=== PATIENT | male | born 1980 | race Caucasian/White ===

== ENCOUNTER 2022-04-20 06:38 | Inpatient (IN) | payer OTHER ==
[~2022-04-20] VITALS: Ht 188 cm; Wt 90.7 kg
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
--- NOTE | 2022-04-20 07:15 | NUR ---
REceived pt FROM [facility]IE PT AWAKE [facility] COMMAND WAITING FOR X RAYS
--- NOTE | 2022-04-20 07:50 | NUR ---
X-RAY DONE AT BED SIDE
--- NOTE | 2022-04-20 08:50 | NUR ---
MOVE SHEET SUBMITTED.
--- NOTE | 2022-04-20 09:06 | NUR ---
[employer] AT BED SIDE SPOOK WITH PT OFFICER (DUNIA # [id number] ) AND OFFICER NATALEE #[id number] # [id number]
--- NOTE | 2022-04-20 09:17 | NUR ---
[facility] CM [phone] X [phone]
--- NOTE | 2022-04-20 09:22 | NUR ---
DR. TAY FROM [facility] SPEAKING WITH DR. HARDING.
--- NOTE | 2022-04-20 09:30 | NUR ---
[facility] CALLED [facility].
[2022-04-20] MEDS ORDERED: LORAZEPAM INJ 2 MG/ML VIAL ONE (09:52)
[2022-04-20] MEDS ORDERED: MAG HYDROX/AL HYDROX/SIMETH 30 ML UDC PO PRN (10:00)
[2022-04-20] MEDS ORDERED: Z GUARD REMEDY 4 OZ OINT TP PRN (10:00)
[2022-04-20] MEDS ORDERED: ONDANSETRON HCL/PF 4 MG/2 ML VIAL IVP PRN (10:00)
[2022-04-20] MEDS ORDERED: LORAZEPAM INJ 2 MG/ML VIAL IM ONE (10:00)
[2022-04-20] MEDS ORDERED: MAGNESIUM HYDROXIDE 30 ML UDC PO PRN (10:00)
[2022-04-20] MEDS ORDERED: ZOLPIDEM TARTRATE 5 MG TABLET PO PRN (10:00)
[2022-04-20] MEDS ORDERED: ACETAMINOPHEN 325 MG TABLET PO PRN (10:00)
[2022-04-20] MEDS ORDERED: MORPHINE SULFATE INJ 2 MG/ML DISP.SYRIN IV ONE (10:30)
[2022-04-20] MEDS ORDERED: MORPHINE SULFATE INJ 2 MG/ML DISP.SYRIN ONE (10:47)
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
--- NOTE | 2022-04-20 11:30 | NUR ---
PNEUMOTHARAX 5-10% CERTIFIED TOWER CLIMBER NEED CHEST TUBE BY DR. HARDING
--- NOTE | 2022-04-20 11:59 | NUR ---
CALLED ORTHO DR. WHARTON LEFT VM
--- NOTE | 2022-04-20 12:32 | NUR ---
RESTING AND ASLEEPY NO SOB OR DISTRESS HOB 45 ALL TIME
--- NOTE | 2022-04-20 14:19 | NUR ---
bed assigned 315.1 admitting aware.
--- NOTE | 2022-04-20 15:00 | NUR ---
NO SOB OR DISTRESS
--- NOTE | 2022-04-20 15:27 | NUR ---
HAND OFF TO Miguel CLEMENTS RN
--- NOTE | 2022-04-20 15:27 | NUR ---
TO ROOM 315-1
--- NOTE | 2022-04-20 15:40 | NUR ---
OIL EXPERT ADMITTING NOTES ADMITTED A 42 YO MALE TO UNIT AT 1534 VIA GURNEY WITH DX OF PNEUMOTHORAX. PT IS AOX4 AND ABLE TO MAKE NEEDS KNOWN. ORIENTED TO ROOM AND STAFF. VS TAKEN , STABLE AND RECORDED, PT ON 6 LPM VIA NC PER MD RECOMMENDATION. PATIENT IS SATURATING AT 97% SPO2 WITH NO ACUTE RESPIRATORY DISTRESS NOTED. WITH LEFT WRIST G#18, SALINE LOCKED, PATENT AND FLUSHING WELL. TELEMONITORING SHOWS SINUS RHYTHM AT 94 BPM. LUNGS CLEAR ON AUSCULTATION, ABDOMEN SOFT AND NON TENDER AND NON-DISTENDED WITH POSITIVE BOWEL SOUNDS ON 4 QUADRANTS. PHOTOS OF SKIN ISSUES TAKEN AND FILED ON HIS CHART. SAFETY MEASURES IMPLEMENTED: BED PLACED IN LOWEST AND LOCKED POSITION WITH SR UP X2. TRAY TABLE AND CALL LIGHT WITHIN EASY REACH OF PATIENT. WILL CONTINUE TO MONITOR PATIENT.
[2022-04-20 15:45] VITALS: BP 134/84
--- NOTE | 2022-04-20 17:35 | NUR ---
RN NOTES - PAIN MGT PATIENT REQUESTING FOR PAIN MEDICATION FOR RIGHT ARM PAIN 8-01/01, LOLITA CHO ORDERED NORCO 5/325 MG Q4 PRN, GIVEN TO THE PATIENT. WILL CONTINUE TO MONITOR.
[2022-04-20] MEDS: HYDROCODONE/APAP 5/325MG TABLET PO PRN (17:41)
[2022-04-20] MEDS ORDERED: ACETAMINOPHEN ES 500 MG TABLET ONE (18:23)
[2022-04-20 20:00] VITALS: BP 116/76
--- NOTE | 2022-04-20 20:00 | NUR ---
DIRECTOR PHARMACY SERVICES CLOSING NOTES PATIENT LYING IN BED, RESTING, EASILY AROUSABLE, NOT IN ANY SIGNS AND SYMPTOMS OF ANY DISTRESS. ENDORSED TO ORDER SCHEDULE CLERK NURSE FOR CONTINUITY OF CARE.
--- NOTE | 2022-04-20 20:09 | NUR ---
DIP STAND LOADER OPENING NOTE PATIENT SLEEPING IN BED, EASILY AWAKENED, PT ALERT/ORIENTED X 4, PT ABLE TO MAKE NEEDS KNOWN. PT STABLE ON 6 LPM OF O2 VIA NASAL CANNULA, NO S/S OF DISTRESS OR SOB NOTED, BREATHING EVEN AND UNLABORED. RIGHT ARM IN SPLINT. SAFETY MEASURES IN PLACE: CALL LIGHT WITHIN REACH, SIDE RAILS UP X 2, BED LOCKED IN LOWEST POSITION, BED ALARM ON. WILL CONTINUE TO MONITOR PATIENT Addendum: 04/20/22 at 2013 by ASHWINI BAE RN PATIENT ON EXTERNAL BARREL SCRAPER READING SINUS RHYTHM WITH PVC'S, HR: 88
[2022-04-20] MEDS: MORPHINE SULFATE INJ 2 MG/ML DISP.SYRIN IV PRN (21:25)
[2022-04-21] VITALS: BP 119/85
[2022-04-21] MEDS: HYDROCODONE/APAP 5/325MG TABLET PO PRN ×3 (00:29→21:22)
[2022-04-21 04:00] VITALS: BP 110/82
[2022-04-21] MEDS: MORPHINE SULFATE INJ 2 MG/ML DISP.SYRIN IV PRN ×3 (04:07→18:21)
--- NOTE | 2022-04-21 06:20 | NUR ---
SUPERVISOR PAINT DEPARTMENT CLOSING NOTE PATIENT SLEEPING IN BED, EASILY AWAKENED, PT ALERT/ORIENTED X 4, PT ABLE TO MAKE NEEDS KNOWN. PT STABLE ON 6 LPM OF O2 VIA NASAL CANNULA, NO S/S OF DISTRESS OR SOB NOTED, BREATHING EVEN AND UNLABORED. PATIENT ON EXTERNAL SPOILAGE WORKER READING SINUS RHYTHM WITH PVC'S, HR: 78. RIGHT ARM IN SPLINT. NO SIGNIFICANT CHANGES THIS SHIFT, PT SLEPT WELL THROUGH THE NIGHT, MEDICATIONS GIVEN ORDERED, PT NEEDS MET THROUGHOUT SHIFT, PAIN CONTROLLED WITH MEDS. SAFETY MEASURES IN PLACE: CALL LIGHT WITHIN REACH, SIDE RAILS UP X 2, BED LOCKED IN LOWEST POSITION, BED ALARM ON. WILL ENDORSE TO DAYSHIFT RN FOR CONTINUITY OF CARE
[2022-04-21 06:59] LABS: BASOPHILS % (AUTO) 0.3 % (0.0-2.0); EOSINOPHILS % (AUTO) 2.3 % (0.0-6.0); HEMATOCRIT 40 % (39-51); HEMOGLOBIN 13.6 g/dL (13.5-17.5); LYMPHOCYTES # (AUTO) 1.3 K/uL (0.8-4.8); LYMPHOCYTES % (AUTO) 15.4 % (20.0-44.0); MEAN CORPUSCULAR HGB CONC 34 g/dl (31.0-36.0); MEAN CORPUSCULAR VOLUME 89 fL (80-96); MONOCYTES # (AUTO) 0.5 K/uL (0.1-1.30); MONOCYTES % (AUTO) 5.4 % (2.0-12.0); NEUTROPHILS # (AUTO) 6.5 K/uL (1.8-8.9); NEUTROPHILS % (AUTO) 76.6 % (43.0-81.0); PLATELET COUNT (AUTO) 313 K/uL (150-450); RED BLOOD CELL COUNT(AUTO) 4.49 MIL/uL (4.5-6.0); WHITE BLOOD COUNT (AUTO) 8.4 K/uL (4.3-11.0)
--- NOTE | 2022-04-21 07:23 | NUR ---
MANAGER SHAREPOINT OPENING NOTES RECEIVED PATIENT AWAKE IN BED IN NO ACUTE SIGNS OF DISTRESS. A/O X 4, ABLE TO MAKE NEEDS KNOWN, NO C/O PAIN AT THIS TIME. RIGHT ARM SPLINT IN PLACE. PT ON O2 VIA NASAL CANNULA @ 6LPM, TOLERATING WELL, BREATHING EVEN AND UNLABORED. TELE- MONITOR CURRENTLY SHOWS NSR WITH OCCASIONAL PVC'S AND PAC'S, HR 90, NO C/O CARDIAC DISTRESS NOTED. SAFETY MEASURES IN PLACE: CALL LIGHT WITHIN REACH, SIDE RAILS UP X 2, BED LOCKED IN LOWEST POSITION, BED ALARM ON. WILL CONTINUE TO MONITOR PATIENT ACCORDINGLY.
[2022-04-21 07:42] LABS: CALCIUM, SERUM 8.2 mg/dL (8.5-10.1); CREATININE 0.9 mg/dL (0.6-1.3); PHOSPHORUS 3.2 mg/dL (2.5-4.9); POTASSIUM 4.1 mmol/L (3.5-5.1)
[2022-04-21 08:00] VITALS: BP 135/72
[2022-04-21 12:00] VITALS: BP 128/68
[2022-04-21 16:00] VITALS: BP 121/75
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
--- NOTE | 2022-04-21 18:41 | NUR ---
AUTO DRIVER CLOSING NOTES PATIENT IN BED WATCHING TV AT THIS TIME. A/O X 4, ABLE TO MAKE NEEDS KNOWN. RIGHT ARM SPLINT IN PLACE. ON O2 VIA NASAL CANNULA @ 6LPM, TOLERATING WELL, BREATHING EVEN AND UNLABORED, NO ACUTE RESPIRATORY DISTRESS NOTED DURING SHIFT. TELE- MONITOR CURRENTLY SHOWS NSR WITH OCCASIONAL PVC'S AND PAC'S, HR 72, NO C/O CARDIAC DISTRESS VOICED. ALL NEEDS AND CARE ATTENDED WELL. SAFETY MEASURES KEPT IN PLACE: CALL LIGHT WITHIN REACH, SIDE RAILS UP X 2, BED LOCKED IN LOWEST POSITION, BED ALARM ON. WILL ENDORSE SOBIA TO NIGHTSHIFT NURSE.
--- NOTE | 2022-04-21 19:50 | NUR ---
AMUSEMENT EQUIPMENT OPERATOR OPENING NOTE RECEIVED PATIENT AWAKE IN BED. NO ACUTE SIGNS OF DISTRESS NOTED. PT A/O X 4, ABLE TO MAKE NEEDS KNOWN, NO C/O PAIN AT THIS TIME. RIGHT ARM SPLINT IN PLACE. PT ON O2 VIA NASAL CANNULA @ 6 LPM, TOLERATING WELL, BREATHING EVEN AND UNLABORED. TELE- MONITOR CURRENTLY SHOWS NSR WITH OCCASIONAL PVC'S AND PAC'S, HR 90, NO C/O CARDIAC DISTRESS. SAFETY MEASURES IN PLACE: CALL LIGHT WITHIN REACH, SIDE RAILS UP X 2, BED LOCKED IN LOWEST POSITION, BED ALARM ON. WILL CONTINUE TO MONITOR PATIENT.
[2022-04-21 21:08] VITALS: BP 117/85
[2022-04-22] VITALS: BP 125/84
[2022-04-22] MEDS: MORPHINE SULFATE INJ 2 MG/ML DISP.SYRIN IV PRN (00:16)
[2022-04-22 04:00] VITALS: BP 117/77
--- NOTE | 2022-04-22 07:03 | NUR ---
VP OF TECHNOLOGY CLOSING NOTE PATIENT SLEEPING IN BED, EASILY AWAKENED, PT ALERT/ORIENTED X 4, PT ABLE TO MAKE NEEDS KNOWN. PT STABLE ON 6 LPM OF O2 VIA NASAL CANNULA, NO S/S OF DISTRESS OR SOB NOTED, BREATHING EVEN AND UNLABORED. PATIENT ON TELE MONITOR READING SINUS RHYTHM WITH PVC'S. RIGHT ARM IN SPLINT. MEDICATIONS GIVEN ORDERED, PAIN CONTROLLED WITH MEDS. SAFETY MEASURES IN PLACE: CALL LIGHT WITHIN REACH, SIDE RAILS UP X 2, BED LOCKED IN LOWEST POSITION, BED ALARM ON. WILL ENDORSE TO DAYSHIFT RN FOR CONTINUITY OF CARE
--- NOTE | 2022-04-22 07:16 | NUR ---
CLINICAL INFORMATICS STRATEGIST OPENING NOTE RECEIVED PATIENT AWAKE IN BED. NO ACUTE SIGNS OF DISTRESS NOTED. PT A/O X 4, ABLE TO MAKE NEEDS KNOWN. RIGHT ARM SPLINT IN PLACE. PT ON O2 VIA NASAL CANNULA @ 6 LPM, TOLERATING WELL, BREATHING EVEN AND UNLABORED. TELE- MONITOR CURRENTLY SHOWS NSR WITH OCCASIONAL PVC'S AND PAC'S, HR 77, NO C/O CARDIAC DISTRESS. SAFETY MEASURES IN PLACE: CALL LIGHT WITHIN REACH, SIDE RAILS UP X 2, BED LOCKED IN LOWEST POSITION, BED ALARM ON. WILL CONTINUE TO MONITOR PATIENT.
[2022-04-22 07:23] LABS: CALCIUM, SERUM 8.8 mg/dL (8.5-10.1); CREATININE 0.9 mg/dL (0.6-1.3); MAGNESIUM 2.3 mg/dL (1.8-2.4); PHOSPHORUS 3.9 mg/dL (2.5-4.9); POTASSIUM 3.8 mmol/L (3.5-5.1)
[2022-04-22] MEDS: HYDROCODONE/APAP 5/325MG TABLET PO PRN ×3 (08:04→19:40)
[2022-04-22 08:36] LABS: BASOPHILS % (AUTO) 0.1 % (0.0-2.0); EOSINOPHILS % (AUTO) 2.9 % (0.0-6.0); HEMATOCRIT 41 % (39-51); HEMOGLOBIN 13.6 g/dL (13.5-17.5); LYMPHOCYTES # (AUTO) 1.4 K/uL (0.8-4.8); LYMPHOCYTES % (AUTO) 18.8 % (20.0-44.0); MEAN CORPUSCULAR HGB CONC 33 g/dl (31.0-36.0); MEAN CORPUSCULAR VOLUME 89 fL (80-96); MONOCYTES # (AUTO) 0.4 K/uL (0.1-1.30); NEUTROPHILS # (AUTO) 5.3 K/uL (1.8-8.9); NEUTROPHILS % (AUTO) 72.2 % (43.0-81.0); PLATELET COUNT (AUTO) 321 K/uL (150-450); RED BLOOD CELL COUNT(AUTO) 4.63 MIL/uL (4.5-6.0); WHITE BLOOD COUNT (AUTO) 7.3 K/uL (4.3-11.0)
--- NOTE | 2022-04-22 12:27 | NUR ---
Medical records: Per the pt.'s hydrological technical officer, Racheal Cabrera TEL:[phone] request pt. signed release of health information form and it was placed in the chart. NICOLE emailed facesheet and current medication list to [email or web address] for the purposes of avoiding warrant and being aware of medications he has taken for drug test purposes per Racheal. NICOLE will be available as needed.
--- NOTE | 2022-04-22 18:28 | NUR ---
RN CLOSING NOTE PATIENT SLEEPING IN BED, EASILY AWAKENED, PT ALERT/ORIENTED X 4, PT ABLE TO MAKE NEEDS KNOWN. PT STABLE ON ROOM AIR, WAS WEANED OFF SUPPLEMENTAL OXYGEN PER DR ORDER. NO S/S OF RESPIRATORY DISTRESS OR SOB NOTED AT THIS TIME, BREATHING EVEN AND UNLABORED. NO COMPLAINTS OF CARDIAC DISTRESS. PAIN CONTROLLED WITH MEDICATIONS. SAFETY MEASURES IN PLACE: CALL LIGHT AND TRAY WITHIN REACH, SIDE RAILS UP X 2, BED LOCKED IN LOWEST POSITION, BED ALARM ON. WILL ENDORSE TO MANAGER LEAN RN FOR CONTINUITY OF CARE
--- NOTE | 2022-04-22 19:36 | NUR ---
RN OPENING NOTE PATIENT SLEEPING IN BED, EASILY AWAKENED, PT ALERT/ORIENTED X 4, PT ABLE TO MAKE NEEDS KNOWN. PT STABLE ON ROOM AIR, WAS WEANED OFF SUPPLEMENTAL OXYGEN PER DR ORDER. NO S/S OF RESPIRATORY DISTRESS OR SOB NOTED AT THIS TIME, BREATHING EVEN AND UNLABORED. NO COMPLAINTS OF CARDIAC DISTRESS. SAFETY MEASURES IN PLACE: CALL LIGHT AND TRAY WITHIN REACH, SIDE RAILS UP X 2, BED LOCKED IN LOWEST POSITION, BED ALARM ON.
[2022-04-22 19:39] VITALS: BP 138/77
[2022-04-23] MEDS: HYDROCODONE/APAP 5/325MG TABLET PO PRN ×4 (03:32→20:56)
--- NOTE | 2022-04-23 07:48 | NUR ---
WAREHOUSE TEAM LEADER OPENING NOTE Patient in bed, awake. A/O x 4, able to make needs known. On room air, breathing evenly and unlabored. No SOB or s/s of distress noted. IV access on Left wrist #18 SL, intact and patent. On tele monitoring showing SR. Safety precautions in place: bed in low, locked position; siderails up x 2; call light within reach. Will continue to monitor.
[2022-04-23 08:00] VITALS: BP 122/87
--- NOTE | 2022-04-23 08:14 | NUR ---
RN NOTE Patient complained of pain on left arm and knees, 7/10 on pain scale. PRN [place] 5/325 given, will continue to monitor.
--- NOTE | 2022-04-23 15:53 | NUR ---
RN NOTE Patient complained of pain on left arm and knees, 7/10 on pain scale. PRN [place] 5/325 1 tablet PO given, will continue to monitor.
[2022-04-23 16:00] VITALS: BP 120/68
--- NOTE | 2022-04-23 19:45 | NUR ---
AUTO ELECTRICIAN CLOSING NOTE Patient in bed, awake. A/O x 4, able to make needs known. On room air, breathing evenly and unlabored. No SOB or s/s of distress noted. IV access on Left wrist #18 SL, patient refusing to have IV access flushed. On tele monitoring showing Sinus tachycardia, HR 108. All needs attended to. Due meds given. Safety precautions in place: bed in low, locked position; siderails up x 2; call light within reach. Will endorse to hourly shift manager nurse for SOBIA.
[2022-04-23 20:00] VITALS: BP 122/82
--- NOTE | 2022-04-23 20:28 | NUR ---
RN OPENING NOTE PATIENT AWAKE IN BED. A/OX4. NO S/S OF DISTRESS, BREATHING WITHOUT DIFFICULTY ON ROOM AIR. L-WRIST #18 INTACT AND PATENT. TELE READS SR 83. SAFETY MEASURES IN PLACE: BED LOCKED IN PLACE AND AT LOWEST POSITION, RAILS UP X2, CALL KELLY WITHIN REACH. WILL CONTINUE TO MONITOR PATIENT.
[2022-04-24] VITALS (7 sets, daily range): BP systolic 98–143; BP diastolic 56–102
--- NOTE | 2022-04-24 07:02 | NUR ---
RN CLOSING NOTE PATIENT ASLEEP IN BED. A/OX4. NO S/S OF DISTRESS, BREATHING WITHOUT DIFFICULTY ON ROOM AIR. L-WRIST #18 SL INTACT AND PATENT. TELE READS SR 74 W/ PVCs. SAFETY MEASURES IN PLACE: BED LOCKED AND AT LOWEST POSITION, RAILS UP X2, CALL KELLY WITHIN REACH. WILL ENDORSE TO NEXT SHIFT FOR SOBIA.
--- NOTE | 2022-04-24 07:05 | NUR ---
GLOBAL SALES MANAGER OPENING NOTES RECEIVED PATIENT AWAKE IN BED, ON ROOM AIR, NO S/S OF RESPIRATORY DISTRESS. PATIENT IS A/Ox4 ABLE TO MAKE NEEDS KNOWN. IV ACCESS L WRIST #18 S/L. INTACT AND PATENT. PATIENT DID SAY HE IS WAS SOME PAIN AND REQUESTED PRN NARCO. ON TELE MONITORING SHOWING SINUS RHYTHM HR 79 WITH SOME PVCs. PATIENT IS CONTINENT, AMBULATORY AND HAS BATHROOM PRIVILEGE. SKIN ISSUES: R ARM SPLINT, IN PLACE. SAFETY MEASURES: BED LOCKED AND IN LOWEST POSITION, SIDE RAILS UPx2, CALL LIGHT WITHIN REACH, HOB ELEVATED. WILL CONTINUE TO MONITOR.
[2022-04-24] MEDS: HYDROCODONE/APAP 5/325MG TABLET PO PRN ×3 (08:02→17:09)
--- NOTE | 2022-04-24 14:25 | NUR ---
RN NOTES PATIENT COMPLAINED OF PAIN 7/10 IN HIS ARM AND SIDE. PRN NARCO ADMINISTERED @1304. PT NOW SLEEPING IN BED. WILL CONTINUE TO MONITOR.
--- NOTE | 2022-04-24 18:42 | NUR ---
SAFETY OFFICER CLOSING NOTES PATIENT AWAKE IN BED, STABLE ON ROOM AIR, NO S/S OF RESPIRATORY DISTRESS. PATIENT IS A/Ox4 ABLE TO MAKE NEEDS KNOWN. IV ACCESS L FA #22 S/L. INTACT AND PATENT. ON TELE MONITORING SHOWING SINUS RHYTHM HR 76 WITH SOME PVCs. PATIENT IS CONTINENT, AMBULATORY AND HAS BATHROOM PRIVILEGE. SKIN ISSUES: R ARM SPLINT, IN PLACE. SAFETY MEASURES MAINTAINED: : BED LOCKED AND IN LOWEST POSITION, SIDE RAILS UPx2, CALL LIGHT WITHIN REACH, HOB ELEVATED. WILL ENDORSE TO NEXT SHIFT ANY SOBIA.
--- NOTE | 2022-04-24 20:33 | NUR ---
TELE PODIATRY ASSISTANT INITIAL NOTES Received pt in bed sitting while watching TV at this time, He's pleasant and approachable , no signs of any discomfort at this time. he's left arm still with splint and dressings. Vital signs stable and he's on tele SR heart rate 84. kept him comfortable at all times. will continue monitoring.
--- NOTE | 2022-04-25 | NUR ---
TELE INDUSTRIAL RELATIONS WORKER NOTES PT SLEEPING COMFORTABLY IN BED WITHOUT ANY DISCOMFORT NOTED. KEPT HIM WARM AND COMFORTABLE AT ALL TIMES. TELE SR PER MONITOR . WILL CONTINUE MONITORING.
[2022-04-25] MEDS: HYDROCODONE/APAP 5/325MG TABLET PO PRN ×5 (04:42→23:45)
--- NOTE | 2022-04-25 04:42 | NUR ---
TELE NAVAL POLICE [place]IN NOTES PT WOKE UP AND ASKING FOR HIS NORCO TABLET FOR HIS PAIN ON HIS RIGHT ARM. JUICE AND SANDWICH ALSO SERVED AND STATED "THANK YOU " . WILL CONTINUE MONITORING.
--- NOTE | 2022-04-25 06:51 | NUR ---
TELE APPLIED SCIENCE AND TECHNOLOGIES DEAN CLOSING NOTES PT AWAKE AND WATCHING TV AT THIS TIME. STABLE TROUGHOUT THE NIGHT. TELE SINUS RHYTHM HEART RATE 78. ALL NEEDS MET AND WILL CONTINUE MONITORING . ENDORSE TO AM NURSE FOR CONTINUITY OF CARE.
--- NOTE | 2022-04-25 07:15 | NUR ---
SENIOR ADMINISTRATIVE ASSOCIATE OPENING NOTE RECEIVED PATIENT AWAKE IN BED. NO ACUTE SIGNS OF DISTRESS NOTED. PT A/O X 4, ABLE TO MAKE NEEDS KNOWN. RIGHT ARM SPLINT IN PLACE. PT ON ROOM AIR, TOLERATING WELL, BREATHING EVEN AND UNLABORED. TELE- MONITOR CURRENTLY SHOWS NSR , HR 80, NO C/O CARDIAC DISTRESS. SAFETY MEASURES IN PLACE: CALL LIGHT WITHIN REACH, SIDE RAILS UP X 2, BED LOCKED IN LOWEST POSITION, BED ALARM ON. WILL CONTINUE TO MONITOR PATIENT.
[2022-04-25 08:44] VITALS: BP 122/90
[2022-04-25 16:37] VITALS: BP 130/86
--- NOTE | 2022-04-25 18:33 | NUR ---
MS RN CLOSING NOTE PATIENT RESTING AWAKE IN BED AT THIS TIME. NO ACUTE SIGNS OF DISTRESS NOTED. PT A/O X 4, ABLE TO MAKE NEEDS KNOWN. RIGHT ARM SPLINT IN PLACE. PT ON ROOM AIR, TOLERATING WELL, BREATHING EVEN AND NONLABORED. NO C/O CARDIAC DISTRESS. PAIN MANAGED WITH MEDICATION. SAFETY MEASURES IN PLACE: CALL LIGHT WITHIN REACH, SIDE RAILS UP X 2, BED LOCKED IN LOWEST POSITION, BED ALARM ON. WILL CONTINUE TO MONITOR PATIENT.
--- NOTE | 2022-04-25 20:00 | NUR ---
RN OPENING NOTE PATIENT AWAKE IN BED. A/OX4. NO S/S OF DISTRESS, BREATHING WITHOUT DIFFICULTY ON ROOM AIR. LFA #20 SL INTACT AND PATENT. SAFETY MEASURES IN PLACE: BED LOCKED AND AT LOWEST POSITION, RAILS UP X2, CALL KELLY WITHIN REACH. WILL CONTINUE TO MONITOR PATIENT.
--- NOTE | 2022-04-26 06:32 | NUR ---
RN CLOSING NOTE PATIENT ASLEEP IN BED. A/OX4. NO S/S OF DISTRESS, BREATHING WITHOUT DIFFICULTY ON ROOM AIR. LFA #20 SL INTACT AND PATENT. SAFETY MEASURES IN PLACE: BED LOCKED AND AT LOWEST POSITION, RAILS UP X2, CALL KELLY WITHIN REACH. WILL ENDORSE TO DAY SHIFT FOR SOBIA.
--- NOTE | 2022-04-26 07:23 | NUR ---
RN OPENING NOTE RECEIVE PATIENT AWAKE IN BED, WATCHING TV, A/OX4. NOT SHOWING ANY S/SX OF ANY ACUTE DISTRESS, BREATHING ON ROOM AIR WITHOUT ANY DIFFICULTY. LFA #20 SL IV ACCESS, INTACT AND PATENT, FLUSHING WELL. SAFETY MEASURES IN PLACE: BED LOCKED AND AT LOWEST POSITION, SIDE RAILS UP X2, CALL LIGHT AND TRAY TABLE WITHIN EASY REACH. WILL CONTINUE TO MONITOR PATIENT.
[2022-04-26 08:00] VITALS: BP 120/72
[2022-04-26] MEDS: HYDROCODONE/APAP 5/325MG TABLET PO PRN (08:20)
--- NOTE | 2022-04-26 08:20 | NUR ---
PAIN CONTROL PATIENT REPORTS 7-8 PAIN COMING FROM THE RIB AND RIGHT ARM, GIVEN NORCO 5/325 MG ORDERED, WILL CONTINUE TO MONITOR.
[2022-04-26] MEDS: KETOROLAC TROMETHAMINE 10 MG TABLET PO PRN ×2 (13:14→19:54)
[2022-04-26] MEDS: oxyCODONE/APAP (5/325 MG) 1 UDTAB TABLET PO PRN ×2 (13:15→19:56)
--- NOTE | 2022-04-26 13:15 | NUR ---
PAIN CONTROL PATIENT REPORTS 8-9 PAIN COMING FROM THE RIB AND RIGHT ARM, NEW ORDER OF KETOROLAC 10 MG AND OXYCODONE 10/325 Q6, WILL CONTINUE TO MONITOR.
[2022-04-26 15:57] VITALS: BP 115/78
--- NOTE | 2022-04-26 19:28 | NUR ---
RN CLOSING NOTE PATIENT AWAKE IN BED, WATCHING TV, A/OX4. NOT SHOWING ANY S/SX OF ANY ACUTE DISTRESS, BREATHING ON ROOM AIR WITHOUT ANY DIFFICULTY. STILL LFA #20 SL IV ACCESS, INTACT AND PATENT, FLUSHING WELL. ALL DUE MEDS GIVEN, ALL NEEDS MET. SAFETY MEASURES MAINTAINED: BED LOCKED AND AT LOWEST POSITION, SIDE RAILS UP X2, CALL LIGHT AND TRAY TABLE WITHIN EASY REACH. ENDORSED TO CHECK WRITER SALESPERSON NURSE.
[2022-04-26 20:12] VITALS: BP 140/69
[2022-04-27] MEDS: oxyCODONE/APAP (5/325 MG) 1 UDTAB TABLET PO PRN ×4 (03:18→22:38)
[2022-04-27] MEDS: KETOROLAC TROMETHAMINE 10 MG TABLET PO PRN ×3 (03:18→16:35)
--- NOTE | 2022-04-27 06:52 | NUR ---
RN CLOSING NOTE PATIENT ASLEEP IN BED. A/OX4. NO S/S OF DISTRESS, BREATHING WITHOUT DIFFICULTY ON ROOM AIR. LFA #20 SL INTACT AND PATENT. SAFETY MEASURES IN PLACE: BED LOCKED AND AT LOWEST POSITION, RAILS UP X2, CALL KELLY WITHIN REACH. WILL ENDORSE TO NEXT SHIFT FOR SOBIA.
--- NOTE | 2022-04-27 07:26 | NUR ---
MS RN OPENING NOTE RECEIVED PT AWAKE AND RESTING IN BED. PT IS A/O X4, ABLE TO MAKE NEEDS KNOWN. ON ROOM AIR, TOLERATING WELL. NO SOB NOTED. NOT IN ANY SIGN OF RESPIRATORY DISTRESS. IV ACCESS ON LFA G#20 INTACT AND PATENT. SAFETY MEASURES IN PLACE: BED IN LOWEST AND LOCKED POSITION, SIDE RAILS UP X2, AND CALL LIGHT WITHIN REACH. WILL CONTINUE TO MONITOR PT.
[2022-04-27 08:00] VITALS: BP 128/68
--- NOTE | 2022-04-27 10:20 | NUR ---
RN NOTE PT C/O RIGHT ARM PAIN WITH PAIN SCALE LEVEL OF 9/10 AND REQUESTED FOR HIS PERCOCET AND TORADOL MEDICATIONS FOR PAIN. PERCOCET 5/325MG 2TABS PO AND TORADOL 10MG 1 TAB PO GIVEN ORDERED PRN Q6HR FOR SEVERE PAIN. PER MD OK TO GIVE MEDICATION AT THE SAME TIME. WILL MONITOR AND REASSESS PT.
[2022-04-27 16:00] VITALS: BP 135/74
--- NOTE | 2022-04-27 19:15 | NUR ---
MS RN OPENING NOTES RECEIVED PT AWAKE IN BED, WATCHING TV AT THIS TIME. A/O X4, ABLE TO MAKE NEEDS KNOWN. ON ROOM AIR, TOLERATING WELL. NO SOB NOTED. NOT IN ANY SIGN OF RESPIRATORY DISTRESS. DENIES ANY PAIN AT THIS TIME. PT HAS NO IV ACCESS AND REFUSED REINSERTION. MD AWARE. SAFETY MEASURES IN PLACE: BED IN LOWEST AND LOCKED POSITION, SIDE RAILS UP X2, AND CALL LIGHT WITHIN REACH. WILL CONTINUE TO MONITOR AND ASSIST.
--- NOTE | 2022-04-27 19:18 | NUR ---
MS RN CLOSING NOTE PT AWAKE AND RESTING IN BED. PT IS A/O X4, ABLE TO MAKE NEEDS KNOWN. ON ROOM AIR, TOLERATING WELL. NO SOB NOTED. NOT IN ANY SIGN OF RESPIRATORY DISTRESS. PT HAS NO IV ACCESS AND REFUSED REINSERTION. MD AWARE. ALL NEEDS ATTENDED. KEPT CLEAN AND COMFORTABLE AT ALL TIMES. SAFETY MEASURES IN PLACE: BED IN LOWEST AND LOCKED POSITION, SIDE RAILS UP X2, AND CALL LIGHT WITHIN REACH. ENDORSED TO TIRE RETREADER NURSE FOR SOBIA.
[2022-04-27 20:00] VITALS: BP 119/75
--- NOTE | 2022-04-27 22:38 | NUR ---
RN NOTE PERCOCET ADMINISTERED @ 0350. PT REQUESTING TORADOL WELL BUT MEDICATION IS NOT STOCKED IN UNIT AT THE MOMENT. EXPLAINED TO PT AND VERBALIZED UNDERSTANDING. Addendum: 04/27/22 at 2254 by BOOKER MCCONNELL RN PT INSTRUCTED TO OPEN MOUTH AFTER ADMINISTRATION OF PERCOCET. BOTH TABLETS NOT SEEN IN MOUTH.
[2022-04-28] MEDS: oxyCODONE/APAP (5/325 MG) 1 UDTAB TABLET PO PRN ×3 (05:32→17:27)
--- NOTE | 2022-04-28 06:29 | NUR ---
MS RN CLOSING NOTE PT AWAKE AND RESTING IN BED. A/O X4, ABLE TO MAKE NEEDS KNOWN. STABLE ON ROOM AIR, TOLERATING WELL. NO SOB NOTED. NOT IN ANY SIGN OF RESPIRATORY DISTRESS. PT HAS NO IV ACCESS AND REFUSED REINSERTION. MD AWARE. ALL NEEDS ATTENDED. KEPT CLEAN AND COMFORTABLE AT ALL TIMES. SAFETY MEASURES MAINTAINED: BED IN LOWEST AND LOCKED POSITION, SIDE RAILS UP X2, AND CALL LIGHT WITHIN REACH. WILL ENDORSE SOBIA TO DAY SHIFT NURSE.
--- NOTE | 2022-04-28 07:40 | NUR ---
MS RN CLOSING NOTE PT AWAKE AND RESTING IN BED. A/O X4, ABLE TO MAKE NEEDS KNOWN. STABLE ON ROOM AIR, TOLERATING WELL. NO SOB NOTED. NOT IN ANY SIGN OF RESPIRATORY DISTRESS. PT HAS NO IV ACCESS AND REFUSED REINSERTION. AWARE. WITH D/C ORDER, AWAITS INSURANCE AUTHORIZATION.SAFETY MEASURES MAINTAINED: BED IN LOWEST AND LOCKED POSITION, SIDE RAILS UP X2, AND CALL LIGHT WITHIN REACH. WILL CONTINUE TO MONITOR. Addendum: 04/28/22 at 0912 by FRANCISCO DEAL RN MS RN OPENING NOTE
[2022-04-28 08:00] VITALS: BP 110/72
[2022-04-28 16:00] VITALS: BP 122/80
--- NOTE | 2022-04-28 19:40 | NUR ---
DISCHARGED NOTE PATIENT DISCHARGED [facility] A/OX4. ON RA, TOLERATING WELL. NO SIGNS OF RESPIRATORY DISTRESS NOTED. VITALS TAKEN, STABLE AND RECORDED. PATIENT'S SKIN INTACT. DENIES PAIN OR DISCOMFORT AT THIS TIME. ALL BELONGINGS ACCOUNTED TO THE PATIENT. DISCHARGED INSTRUCTION RELAYED TO PATIENT. PATIENT LEFT THE UNIT IN A STABLE CONDITION. DISCHARGED.
== END 2022-04-28 22:03 | disposition home or self-care (01) | DRG 135 ==
LOC: ER 06:39 → MED 15:17 → TELE 16:52 → MED 04-25 13:23
PROVIDERS: ADMIT Student in an Organized Health Care Education/Training Program; ATTEND Nurse Practitioner Acute Care
DX: S27.0XXA Traumatic pneumothorax, initial encounter (principal); S27.322A Contusion of lung, bilateral, initial encounter; S22.41XA Multiple fractures of ribs, right side, initial encounter for closed fracture; T79.7XXA Traumatic subcutaneous emphysema, initial encounter; S52.201A Unspecified fracture of shaft of right ulna, initial encounter for closed fracture; Y08.02XA Assault by strike by baseball bat, initial encounter; Z59.02 Unsheltered homelessness; Z20.822 Contact with and (suspected) exposure to COVID-19; J98.11 Atelectasis; Y93.9 Activity, unspecified; Y92.89 Other specified places as the place of occurrence of the external cause
CPT/HCPCS: 36415; 71045-TC; 71100-TC; 71250-TC; 73060-TC; 73070-TC; 73090-TC; 73100-TC; 73502; 80048-TC; 83735-TC; 84100-TC; 85025-TC; 87081-TC; 97112-TC; 97116-TC; 97530-TC; A6253; C9803; G0378; J2060; J2270; U0003